=== PATIENT | female | born 2000 | race Caucasian/White ===

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

== ENCOUNTER 2022-10-19 13:05 | Emergency (ER) | payer OTHER ==
[2022-10-19 13:52] LABS: Specific Gravity > 1.030 (1.005-1.030); Urine Bacteria None Seen /HPF (<20); Urine Bilirubin NEGATIVE (Negative); Urine Blood 3+ (OVER) (Negative); Urine Clarity Extremely Turbid (Clear); Urine Color Yellow (Yellow); Urine Glucose NEGATIVE (Negative); Urine Mucus 4+ /HPF (None Seen); Urine Protein 1+ (Negative); Urine RBC >50 /HPF (None Seen); Urine Urobilinogen Normal (Normal)
[2022-10-19] MEDS ORDERED: ONDANSETRON 4 MG/2 ML VIAL ONE (13:52)
[2022-10-19] MEDS ORDERED: NA CHLORIDE 0.9% 1,000 ML ONE (13:52)
[2022-10-19] MEDS ORDERED: KETOROLAC 30 MG/ML INJ ONE (13:52)
--- OUTSIDE RECORDS SUMMARY | 2022-10-19 13:55 | XMS REPORT | Continuity of Care Document ---
:2000 Author Organization [facility] t Address [address] [address] Care Team Providers Name Role Phone Pcp, Patient Does Not Have A Primary Care Physician +[id number] VINOD PETER Attending Clinician Unavailable Vinod Peter MD Attending Clinician Loreta Lutz RN Attending Clinician Unavailable GONZALEZ JIMENEZ Attending Clinician Unavailable Chelo Plata Attending Clinician Gonzalez Jimneez MD Attending Clinician CHELO MICHAEL Attending Clinician Unavailable Only, Ang Db Test Attending Clinician Unavailable Doctor Unassigned, [place] Attending Clinician Unavailable BINA GAMEZ Attending Clinician Unavailable Bina Gamez MD Attending Clinician Mary Ann Castillo Attending Clinician MARY ANN ISBELL Attending Clinician Unavailable 2, [facility] Attending Clinician Unavailable BINA GAMEZ Admitting Clinician Unavailable Payers Payer Name Policy Type Policy Number Effective Date Expiration Date S [facility] [id number] 2021 00:00:00 [facility] [id number] 2021 00:00:00 Problems Condition Condition Condition Status Onset Resolution Last Treating Co mments Source Name Details Category Date Date Treatment Clinician Date Obesity Obesity Disease Active 2020-05 Univers (BMI (BMI 0-13 ity of 30-39.9) 30-39.9) 00:00: [place] [address] Medical Branch Allergies, Adverse Reactions, Alerts This patient has no known allergies or adverse reactions. Social History Social Habit Start Date Stop Date Quantity Comments Source Alcohol intake 2021-07-27 2021-07-27 Ex-drinker [facility] 00:00:00 00:00:00 (finding) [facility] Tobacco use and 2021-02-17 2021-02-17 Never used [facility] of exposure 00:00:00 00:00:00 [facility] Sex Assigned At [birth year] [facility] of 00:00:00 00:00:00 [facility] Smoking Status Start Date Stop Date Source Never smoker [facility] Medications Ordered Filled Start Stop Current Ordering Indication Dosage Frequency Signature Comments Components Source Medication Medication Date Date Medication? Clinician (SIG) Name Name medroxyPROG 2021- No [id number] 10mg Take 1 Univers ESTERone -07-27 tablet by ity o f (PROVERA) 00:00: 00:00 mouth [place] 10 mg 00 :00 daily. Medical tablet Branch medroxyPROG 2021- No [id number] 10mg Take 1 Univers ESTERone -07-27 tablet by ity o f (PROVERA) 00:00: 00:00 mouth [place] 10 mg 00 :00 daily. Medical tablet Branch ondansetron Yes [id number] 8mg Take 1 Univers (ZOFRAN 1-04 tablet by ity of ODT) 8 mg 00:00: mouth [place] disintegrat 00 every 8 Medic al ing tablet (eight) Branch hours as needed for Nausea and Vomiting (N/V). ondansetron Yes [id number] 8mg Take 1 Univers (ZOFRAN 1-04 tablet by ity of ODT) 8 mg 00:00: mouth [place] disintegrat 00 every 8 Medic al ing tablet (eight) Branch hours as needed for Nausea and Vomiting (N/V). citalopram 2020-05 Yes 40mg Take 40 mg U nivers 40 mg 0-16 by mouth ity of tablet 13:52: daily. [address] citalopram 2020-05 Yes 40mg Take 40 mg U nivers 40 mg 0-16 by mouth ity of tablet 13:52: daily. [address] benzonatate 2020-05 Yes [id number] 100mg Take 1 Univers (TESSALON 0-16 capsule by ity of PERLES) 100 00:00: mouth 3 Tyron as mg capsule 00 (three) Medica l times Branch daily as needed for Cough. benzonatate 2020-05 Yes [id number] 100mg Take 1 Univers (TESSALON 0-16 capsule [...] Time Observation Value Comments Source Systolic blood 2021-07-27 20:47:00 94 mm[Hg] Univer sity of pressure [facility] Diastolic blood 2021-07-27 20:47:00 72 mm[Hg] Unive rsity of [facility] Heart rate 2021-07-27 20:47:00 72 /min [facility] Body temperature 2021-07-27 20:47:00 36.78 [facility] Respiratory rate 2021-07-27 20:47:00 18 /min [facility] Body height 2021-07-27 20:47:00 165.1 cm [facility] Body weight 2021-07-27 20:47:00 95.119 kg [facility] BMI 2021-07-27 20:47:00 34.90 kg/m2 [facility] Body mass index 2021-07-27 20:47:00 97.34 % Unive rsity of (BMI) [Percentile] [facility] Per age and sex Branch Procedures This patient has no known procedures. Encounters Start End Encounter Admission Attending Care Care Encounter Source Date/Time Date/Time Type Type Clinicians Facility Department ID 2021-08-30 2021-08-30 Outpatient VINOD RUIZ [facility] [id number] Univers 10:30:00 10:30:00 ity of [facility] 2021-07-27 2021-07-27 Outpatient VINOD RUIZ [facility] [id number] Univers 15:00:00 15:42:29 ity of [facility] 2021-07-27 2021-07-27 Office Vinod Peter [facility] [id number] Univers 15:00:00 15:42:29 Visit MOLLY [id number] it y of [facility] [id number] [id number] [facility] 134 Branch 2021-05-12 2021-05-12 Letter NeldaMAMIE hackett [id number] Univers 00:00:00 00:00:00 (Out) Loreta CASTANEDA [id number] it y of [facility] [id number] Tyron as [phone] [place] [address] Branch 2021-05-11 2021-05-11 [facility] [id number] Univers 09:20[facility]00 [facility]14[facility] 2021-05-11 2021-05-11 Chelo Ivy [facility] [id number] Univers 09:20:00 10:14:32 Beltran Tony Gonzalez HEALTH [id number] ity of [place] [id number] Tyron as ODELL?BLEA [phone] Ma bonnie[address] MEDICAL OFFICE BUILDING 2021-05-11 2021-05-11 Outpatient Tamir JIMENEZ [facility] [id number] Univers 09:20:00 10:14:32 [facility] 2021-05-11 2021-05-11 [facility] [id number] Univers 09:20:00 10:14:32 [facility] 2021-05-08 2021-05-08 Outpatient R ALEC [facility] [id number] Univers 18:15:00 18:30:15 CHELO [facility] 2021-05-08 2021-05-08 Laboratory Only, Ang Db Test [facility] 1.2.8 40.114 [id number] Univers 18:15:00 18:30:00 Only Alec Chelo [facility] [id number] ity of [place] [id number] Tyron as ODELL?BLEA [phone] Ma dical KNEY [address] MEDICAL OFFICE BUILDING 2021-05-08 2021-05-08 Letter Doctor MAMIE 1.2.840.114 [id number] Univers 00:00:00 00:00:00 (Out) Unassigned, LEONEL [id number] ity of [place] [facility] [id number] Tyron as [phone] [address] 2021-05-08 2021-05-08 Letter Doctor MAMIE 1.2.840.114 [id number] Univers 00:00:00 00:00:00 (Out) Unassigned, LEONEL [id number] ity of [place] [facility] [id number] Tyron as [phone] [address] 2021-03-17 2021-03-17 Outpatient R AD, [facility] [id number] Univers 13:30:00 14:23:37 BINA [facility] 2021-03-17 2021-03-17 Office Ad, [facility] 1.2.840.114 [id number] Univers 13:18:16 14:23:37 Visit Bina VALLE [id number] [id number] [phone] Ma dical [facility] 134 [facility] 2021-03-17 2021-03-17 Outpatient R AD, [facility] [id number] Univers 13:30:00 13:30:00 BINA [facility] 2021-03-01 2021-03-01 Outpatient R AD, [facility] [id number] Univers 15:38:10 23:59:00 [facility] 2021-03-01 2021-03-01 Hospital Ad, [facility] 1.2.840.114 [id number] Univers 15:30:00 23:59:00 Encounter Bina Valle [id number] [id number] [phone] [facility] [address] 2021-02-25 2021-02-25 Outpatient R AD, [facility] [id number] Univers 00:00:00 00:00:00 BINATANMAY worthy [facility] 2021-02-20 2021-02-20 Urgent [facility] 1.2.840.114 [id number] Univers 13:47:56 14:20:49 Care [facility] [id number] i ty of [place] [id number] Tyron as Odell?Blea [phone] Ma dical kney [address] Medical [facility] 2021-02-20 2021-02-[address] 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, [facility] [id number] Univers 14:30:00 14:30:00 BINATANMAY worthy [facility] 2021-02-17 2021-02-17 Orders Doctor HATCH 1.2.840.114 [id number] Univers 00:00:00 00:00:00 Only Unassigned, LEONEL [id number] ity of [place] [facility] [id number] Tyron as [phone] [facility] 009 Branch Results This patient has no known results.
[2022-10-19 13:56] LABS: Absolute Lymphocytes (CBC) 1.2 K/uL (0.7-4.9); Hematocrit 45.6 % (36.0-45.0); Lymphocytes % 16.8 % (15.3-44.8); MCV 90.1 fL (80-100); MPV 7.6 fL (7.6-11.3); RBC Red Blood Cell Count 5.06 M/uL (3.86-4.86)
[2022-10-19 14:13] LABS: Bilirubin Total 0.3 mg/dL (0.2-1.0); Potassium 3.7 mEq/L (3.5-5.1)
--- NOTE | 2022-10-19 14:47 | EDPHYS ---
Physician Documentation [facility] Name: Joanna Simon Age: 22 yrs Sex: Female : 2000 Arrival Date: 10/19/2022 Time: 13:05 Bed 6 Private MD: Wong Vigil W ED Physician Viral Shin HPI: 10/19 13:17 This 22 yrs old Female presents to ER via Ambulatory with complaints of bs3 Abdominal Pain, Nausea/Vomiting. 13:17 Patient has no significant past medical history and is currently on her menses but she bs3 has nausea and the feeling like she is getting vomit since yesterday she has never had this pain before nothing seems to make it better or worse denies any fevers or chills does have some diarrhea no chest pain or shortness of breath no vaginal discharge she endorses never being sexually active. Historical: - Allergies: 13:23 No Known Allergies; ll1 - PMHx: 13:23 anxiety/depression; ll1 - PSHx: 13:23 None; ll1 - Immunization history:: Client reports having NOT received the Covid vaccine. - Social history:: Smoking status: Reported history of juuling and/or vaping. ROS: 13:25 Constitutional: Negative for fever, chills bs3 13:25 All other systems are negative. Exam: 13:25 Constitutional: This is a well developed, well nourished patient who is awake, alert, bs3 and in no acute distress. Head/Face: Normocephalic, atraumatic. Eyes: Pupils equal round and reactive to light, extra-ocular motions intact. Lids and lashes normal. ENT: mmm, no posterior phyarngeal erythema Chest/axilla: Normal chest wall appearance and motion. Nontender with no deformity. No lesions are appreciated. Cardiovascular: Regular rate and rhythm with a normal S1 and S2. symmetric pulses in upper extremities Respiratory: Lungs have equal breath sounds bilaterally, clear to auscultation, no respiratory distress Abdomen/GI: soft, no focal tenderness, mild diffuse tenderness greatest in LUQ/RUQ/LLQ Skin: Warm, dry with normal turgor. Normal color with no rashes, no lesions, and no evidence of cellulitis. MS/ Extremity: Pulses equal, no cyanosis. Neurovascular intact. Full, normal range of motion. Neuro: Awake and alert, GCS 15, oriented to person, place, time, and situation. Cranial nerves II-XII grossly intact. Motor strength 5/5 in all extremities. Sensory grossly intact. Psych: Awake, alert, with orientation to person, place and time. Behavior, mood, and affect are within normal limits. Vital Signs: 13:24 BP 135 / 103; Pulse 95; Resp 18; Temp 98.3; Pulse Ox 99% on R/A; Weight 86.18 kg; ll1 Height 5 ft. 6 in. ; Pain 6/10; 15:01 BP 114 / 80; Pulse 77; Resp 16; Pulse Ox 98% ; bp 13:24 Body Mass Index 30.67 (86.18 kg, 167.64 cm) ll1 13:24 Pain Scale: Adult ll1 MDM: 13:11 Patient medically screened. bs3 14:34 Data reviewed: vital signs, nurses notes. ED course: Urinalysis consistent with bs3 patient's current menses patient reassessed she is feeling much better unclear etiology of symptoms we had a shared decision-making conversation regarding risks and benefits of a CT scan to further elucidate her symptoms however her abdomen is soft nontender and she did not want a CT scan at this point in time return precautions given. 14:46 ED course: I discussed with the patient again at bedside she was comfortable and bs3 feeling better did not want to pursue further work-up return precautions given. 10/19 13:16 Order name: CBC with Diff; Complete Time: 14:33 bs3 10/19 13:16 Order name: Comprehensive Metabolic Panel; Complete Time: 14:33 bs3 10/19 13:16 Order name: Lipase; Complete Time: 14:33 bs3 10/19 13:16 Order name: Urinalysis w/ reflexes; Complete Time: 14:33 bs3 10/19 13:16 Order name: Test, Serum; Complete Time: 14:33 bs3 Administered Medications: 13:45 Drug: NS 0.9% IV 1000 ml Route: IV; Rate: 1000 ml; Site: right antecubital; aa5 15:00 Follow up: IV Status: Completed infusion; IV Intake: 1000ml bp 13:45 Drug: Ondansetron IVP 4 mg Route: IVP; Site: right antecubital; aa5 14:26 Follow up: Response: No adverse reaction aa5 14:25 Drug: Ketorolac IVP 15 mg Route: IVP; Site: right antecubital; aa5 15:00 Follow up: Response: No adverse reaction bp Disposition Summary: 10/19/22 14:46 Discharge Ordered Location: Home bs3 Problem: new bs3 Symptoms: have improved bs3 Condition: Stable bs3 Diagnosis - Diarrhea, unspecified bs3 Followup: bs3 - With: Wong Vigil MD - When: 7 - 10 days - Reason: Re-evaluation by your physician Discharge Instructions: - Discharge Summary Sheet bs3 - Diarrhea, Adult bs3 Forms: - Work release form bs3 - Medication Reconciliation Form bs3 - Thank You Letter bs3 - Antibiotic Education bs3 - Prescription Opioid Use bs3 Prescriptions: - ondansetron 8 mg Oral tablet,disintegrating - take 1 tablet by ORAL route every 8 hours; 12 tablet; Refills: 0, Product bs3 Selection Permitted Signatures: Dispatcher [employer] EDTrisha Almaguer RN RN aa5 Lizzy Mccoy RN RN ll1 Viral Shin MD MD bs3 Johnny Paige RN bp
--- NOTE | 2022-10-19 14:47 | ER ---
Nurse's Notes [facility] Name: Joanna Simon Age: 22 yrs Sex: Female : 2000 Arrival Date: 10/19/2022 Time: 13:05 Bed 6 Private MD: Wong Vigil W Diagnosis: Diarrhea, unspecified Presentation: 10/19 13:24 Chief complaint: Patient states: Abdominal pain, nausea, and diarrhea since yesterday ll1 morning. Coronavirus screen: Vaccine status: Patient reports being unvaccinated. Client denies travel out of the [place] in the last 14 days. At this time, the client does not indicate any symptoms associated with coronavirus-19. Ebola Screen: Patient denies travel to an Ebola-affected area in the 21 days before illness onset. Initial Sepsis Screen: Does the patient meet any 2 criteria? HR > 90 bpm. No. Patient's initial sepsis screen is negative. Does the patient have a suspected source of infection? Yes: Acute abdominal pain. Risk Assessment: Do you want to hurt yourself or someone else? Patient reports no desire to harm self or others. Onset of symptoms was October 18, 2022. 13:24 Method Of Arrival: Ambulatory ll1 13:24 Acuity: SUSHMA 3 ll1 Triage Assessment: 13:25 General: Appears uncomfortable, Behavior is calm, cooperative, appropriate for age. ll1 Pain: Complains of pain in abdomen Quality of pain is described as aching. GI: Reports lower abdominal pain, upper abdominal pain, cramping, diarrhea, nausea. Historical: - Allergies: 13:23 No Known Allergies; ll1 - PMHx: 13:23 anxiety/depression; ll1 - PSHx: 13:23 None; ll1 - Immunization history:: Client reports having NOT received the Covid vaccine. - Social history:: Smoking status: Reported history of juuling and/or vaping. Screenin:35 [facility] ED Fall Risk Assessment (Adult) History of falling in the last 3 months, aa5 including since admission No falls in past 3 months (0 pts) Confusion or Disorientation No (0 pts) Intoxicated or Sedated No (0 pts) Impaired Gait No (0 pts) Mobility Assist Device Used No (0 pt) Altered Elimination No (0 pt) Score/Fall Risk Level 0 - 2 = Low Risk. Abuse screen: Denies threats or abuse. Nutritional screening: No deficits noted. Tuberculosis screening: No symptoms or risk factors identified. Assessment: 13:30 General: Appears comfortable, Behavior is calm, cooperative. Pain: Complains of pain in aa5 abdomen Pain currently is 6 out of 10 on a pain scale. Quality of pain is described as aching. Neuro: Level of Consciousness is awake, alert, obeys commands, Oriented to person, place, time, situation. Cardiovascular: Heart tones S1 S2 present Rhythm is regular. Respiratory: Airway is patent Respiratory effort is even, unlabored, Respiratory pattern is regular, symmetrical. GI: Abdomen is flat, non-distended, Bowel sounds present X 4 quads. Abd is soft and non tender X 4 quads. Reports diarrhea, nausea, Patient currently denies vomiting. : No signs and/or symptoms were reported regarding the genitourinary system. EENT: No signs and/or symptoms were reported regarding the EENT system. Derm: Skin is pink, warm \T\ dry. Musculoskeletal: Range of motion: intact in all extremities. Vital Signs: 13:24 BP 135 / 103; Pulse 95; Resp 18; Temp 98.3; Pulse Ox 99% on R/A; Weight 86.18 kg; ll1 Height 5 ft. 6 in. ; Pain 6/10; 15:01 BP 114 / 80; Pulse 77; Resp 16; Pulse Ox 98% ; bp 13:24 Body Mass Index 30.67 (86.18 kg, 167.64 cm) ll1 13:24 Pain Scale: Adult ll1 ED Course: 13:10 Patient arrived in ED. im 13:10 Wong Vigil MD is Private Physician. im 13:11 Viral Shin MD is Attending Physician. bs3 13:14 Johnny Paige, [place] is Primary Nurse. bp 13:23 Arm band placed on Patient placed in an exam room, on a stretcher. ll1 13:25 Triage completed. ll1 13:25 Patient has correct armband on for positive identification. Placed in gown. Bed in low aa5 position. Call light in reach. Side rails up X2. Pulse ox on. NIBP on. 13:35 Initial lab(s) drawn, by me, sent to lab. Inserted saline lock: 20 gauge in right aa5 antecubital area, using aseptic technique. Blood collected. 13:35 Urine collected: clean catch specimen, sent to lab, urine is dark in color. aa5 14:46 Wong Vigil MD is Referral Physician. bs3 15:01 No provider procedures requiring assistance completed. IV discontinued, intact, bp bleeding controlled, No redness/swelling at site. Pressure dressing applied. Administered Medications: 13:45 Drug: NS 0.9% IV 1000 ml Route: IV; Rate: 1000 ml; Site: right antecubital; aa5 15:00 Follow up: IV Status: Completed infusion; IV Intake: 1000ml bp 13:45 Drug: Ondansetron IVP 4 mg Route: IVP; Site: right antecubital; aa5 14:26 Follow up: Response: No adverse reaction aa5 14:25 Drug: Ketorolac IVP 15 mg Route: IVP; Site: right antecubital; aa5 15:00 Follow up: Response: No adverse reaction bp Medication: 13:35 VIS not applicable for this client. aa5 Intake: 15:00 IV: 1000ml; Total: 1000ml. bp Outcome: 14:46 Discharge ordered by . bs3 15:01 Discharged to home ambulatory, with family. bp 15:01 Condition: stable 15:01 Discharge instructions given to patient, Instructed on discharge instructions, follow up and referral plans. medication usage, Demonstrated understanding of instructions, follow-up care, medications, Prescriptions given X 1. 15:03 Patient left the ED. bp Signatures: Trisha Daniel RN RN aa5 Johnny Paige RN RN bp Lewis, Lynsay, RN RN ll1 Viral Shin MD MD bs3 Zunilda Torres
[2022-10-19 15:14] VITALS: TEMP 98.3
[2022-10-19 15:15] VITALS: BP 114/80; O2SAT 98
== END 2022-10-19 15:03 | disposition home or self-care (01) ==
LOC: ER 13:05
DX: R19.7 Diarrhea, unspecified (principal)
CPT/HCPCS: 85025; 81001; 36415; 84703; 83690; 80053; J2405; J7030; 96361; 96374; 96375; 99284